=== PATIENT | male | born 1940 | race Two or more races ===

== ENCOUNTER → 2017-06-16 | Outpatient (REF) | payer MEDICARE ==
[2017-06-16 19:45] LABS: IMMUNOGLOBULIN G 1260 MG/DL (681-1648); IMMUNOGLOBULIN M 295 MG/DL (40-230)
[2017-06-17 11:35] LABS: ALBUMIN 3.91 GM/DL (3.29-5.55); ALBUMIN % 55.9 % (55.8-66.1); GAMMA GLOBULIN % 19.5 % (11.1-18.8)
[2017-06-19 00:08] LABS: BETA 2 MICROGLOBULIN 1.7 mg/L (0.6-2.4); FREE KAPPA LIGHT CHAINS SERUM 19.5 mg/L (3.3-19.4); FREE LAMBDA LIGHT CHAINS SERUM 29.1 mg/L (5.7-26.3); KAPPA/LAMBDA RATIO SERUM 0.67 (0.26-1.65)
== END ==
LOC: M LAB REF 16:40
PROVIDERS: ATTEND Internal Medicine Medical Oncology
DX: C90.00 Multiple myeloma not having achieved remission (principal)

== ENCOUNTER → 2017-06-18 | Outpatient (CLI) | payer MEDICARE ==
--- NOTE | 2017-06-18 10:35 | REP ---
BONE SURVEY: AP and lateral views of the skull demonstrate no fracture and no definite sclerotic or lytic bone lesions. AP and lateral views of the cervical spine are performed. There is no compression fracture. There is minimal anterior listhesis of C6 on C7 due to degenerative changes at the facets. There is diffuse narrowing, sclerosis, and spurring at the posterior facet joints. There is mild spurring with moderate disc space narrowing and subchondral sclerosis at C4-5 and C5-6. No bone lesions are seen. AP and lateral views of the thoracic spine are performed. There is mild loss of height of the T6-T10 vertebral bodies, age indeterminate. Mild diffuse disc space narrowing and subchondral sclerosis is noted. The posterior elements are intact. No definite bone lesions are seen. AP and lateral views of the lumbar spine are performed. There appears to be mild chronic loss of height of the L3 vertebral body. There is moderate disc space narrowing and subchondral sclerosis at L2-3 with mild narrowing of the other lumbar disc spaces. There is narrowing, sclerosis, and spurring of the posterior facet joints. Posterior elements are intact with mild curvature of the lumbar spine toward the right. No bone lesions are seen. AP view of the pelvis demonstrates no fracture or dislocation. No definite bone lesion is seen. A single view of each humerus is performed. Severe decreased subacromial space is seen on the left with sclerosis and acromial spurring suggesting a left sided rotator cuff tear. There appear to be benign subchondral cystic changes in the humeral head bilaterally. No suspicious bone lesion is seen. AP views of the femurs are performed bilaterally. There is no fracture, dislocation, or bone lesion identified bilaterally. IMPRESSION: Bone survey shows no definite bone lesions as discussed in detail above. Signed by Erick Michael MD 06/18/2017 05:55 P
== END ==
LOC: M RAD 07:27
PROVIDERS: ATTEND Internal Medicine Medical Oncology
DX: C90.00 Multiple myeloma not having achieved remission (principal)